=== PATIENT | male | born 1975 | race Caucasian/White ===

== ENCOUNTER 2023-06-07 11:02 | Emergency (ER) | payer OTHER ==
[~2023-06-07] VITALS: Ht 175.3 cm; Wt 72.6 kg
[2023-06-07 11:52] LABS: Hematocrit 51.6 % (37.0-53.0); Hemoglobin 17.8 g/dL (13.5-17.5); Mean Corpuscular HGB Conc 34.5 g/dL (31.5-36.5); Mean Corpuscular Volume 96 fL (80-100); Mean Platelet Volume 11.3 fL (9.1-12.4); Platelet Count 160 K/mm3 (150-400); RDW Coefficient Variation 12.8 % (11.7-14.2); RDW Standard Deviation 45.4 fL (35.1-46.3); Red Blood Cell Count 5.39 M/mm3 (4.30-5.90); White Blood Cell Count 4.16 K/mm3 (4.00-11.30)
[2023-06-07 12:20] LABS: BASOPHILS PERCENT MAN 0 % (0-2); EOSINOPHILS PERCENT MAN 0 % (0-6); LYMPHOCYTES % ATYPICAL MANUAL 4 % (0-0); LYMPHOCYTES ABSOLUTE MAN 1.74 K/mm3 (0.84-5.20); LYMPHOCYTES PERCENT MAN 38 % (21-46); MONOCYTES ABSOLUTE MAN 0.45 K/mm3 (0.16-1.47); MONOCYTES PERCENT MAN 11 % (4-13); NEUTROPHILS ABSOLUTE MAN 1.95 K/mm3 (1.96-9.15); SEG NEUTROPHILS PERCENT MAN 47 % (41-73); TOTAL CELLS COUNTED 100
[2023-06-07 12:26] LABS: Albumin, Blood 4.1 g/dL (3.4-5.0); Albumin/Globulin Ratio 1.1 (0.8-1.8); Bilirubin, Total 0.8 mg/dL (0.1-1.0); Bun/Creatinine Ratio 23.4 (12.0-20.0); Calcium, Blood 8.9 mg/dL (8.5-10.1); Creatinine, Blood 0.94 mg/dL (0.60-1.20); Globulin, Blood 3.6 g/dL (2.2-4.0); Potassium, Blood 4.3 mmol/L (3.5-5.5); Total Protein, Blood 7.7 g/dL (6.4-8.2)
[2023-06-07] MEDS ORDERED: ONDA4ODT MM (12:44)
[2023-06-07] MEDS ORDERED: LOPE2C PO (12:44)
[2023-06-07] MEDS ORDERED: ALBU90OI INH (12:44)
[2023-06-07 13:42] VITALS: BP 160/92
== END 2023-06-07 13:42 | disposition home or self-care (01) ==
LOC: ER 11:02
PROVIDERS: Emergency Medicine
DX: U07.1 COVID-19 (principal); J40 Bronchitis, not specified as acute or chronic; Z88.0 Allergy status to penicillin; Z88.8 Allergy status to other drugs, medicaments and biological substances; Z88.1 Allergy status to other antibiotic agents; F17.200 Nicotine dependence, unspecified, uncomplicated
CPT/HCPCS: 71046; 80053; 85025; 96361; 96374; 99285-25; J1885; J7030

== ENCOUNTER → 2024-10-24 | Outpatient (CLI) | payer OTHER ==
[~2024-10-24] MED LIST: ALBU90OI INH; LOPE2C PO; ONDA4ODT MM
== END ==
LOC: LAB 16:08 → LAB SHORT 16:08
DX: L08.9 Local infection of the skin and subcutaneous tissue, unspecified (principal)
CPT/HCPCS: 87070; 87075; 87205

== ENCOUNTER 2024-11-26 18:52 | Emergency (ER) | payer OTHER ==
[~2024-11-26] VITALS: Ht 175.3 cm; Wt 74.8 kg
[2024-11-26 19:34] VITALS: BP 172/96
[2024-11-26 20:09] LABS: BASOPHILS ABSOLUTE AUTO 0.09 K/mm3 (0.00-0.23); BASOPHILS PERCENT AUTO 1 % (0-2); EOSINOPHILS ABSOLUTE AUTO 0.16 K/mm3 (0.00-0.68); EOSINOPHILS PERCENT AUTO 2 % (0-6); Hematocrit 43.8 % (37.0-53.0); Hemoglobin 15.2 g/dL (13.5-17.5); IMMATURE GRAN ABSOLUTE AUTO 0.02 K/mm3 (0.00-0.10); IMMATURE GRAN PERCENT AUTO 0 % (0-1); LYMPHOCYTES ABSOLUTE AUTO 2.97 K/mm3 (0.84-5.20); LYMPHOCYTES PERCENT AUTO 31 % (21-46); MONOCYTES ABSOLUTE AUTO 1.07 K/mm3 (0.16-1.47); MONOCYTES PERCENT AUTO 11 % (4-13); Mean Corpuscular HGB 32.8 pg (26.0-34.0); Mean Corpuscular HGB Conc 34.7 g/dL (31.5-36.5); Mean Corpuscular Volume 95 fL (80-100); Mean Platelet Volume 9.5 fL (9.1-12.4); NEUTROPHILS ABSOLUTE AUTO 5.22 K/mm3 (1.96-9.15); NEUTROPHILS PERCENT AUTO 55 % (41-73); Platelet Count 292 K/mm3 (150-400); RDW Coefficient Variation 12.6 % (11.7-14.2); RDW Standard Deviation 43.6 fL (35.1-46.3); Red Blood Cell Count 4.63 M/mm3 (4.30-5.90); White Blood Cell Count 9.53 K/mm3 (4.00-11.30)
[2024-11-26 20:31] LABS: Albumin, Blood 3.9 g/dL (3.4-5.0); Albumin/Globulin Ratio 1.1 (0.8-1.8); Bilirubin, Total 0.3 mg/dL (0.1-1.0); Bun/Creatinine Ratio 21.2 (12.0-20.0); Calcium, Blood 8.9 mg/dL (8.5-10.1); Creatinine, Blood 0.9 mg/dL (0.60-1.20); Globulin, Blood 3.4 g/dL (2.2-4.0); Potassium, Blood 4.1 mmol/L (3.5-5.5); Total Protein, Blood 7.3 g/dL (6.4-8.2)
== END 2024-11-26 22:10 | disposition home or self-care (01) ==
LOC: ER 18:52
PROVIDERS: Student in an Organized Health Care Education/Training Program
DX: L05.92 Pilonidal sinus without abscess (principal); Z88.0 Allergy status to penicillin; Z88.1 Allergy status to other antibiotic agents; Z88.8 Allergy status to other drugs, medicaments and biological substances
CPT/HCPCS: 74177; 80053; 85025; 99283-25; Q9967